=== PATIENT | female | born 1990 | race Caucasian/White ===

== ENCOUNTER 2021-01-30 11:32 | Day surgery (SDC) | payer OTHER ==
[2021-01-28 15:58] LABS: PLATELET COUNT 269 x10^3mcL (179-408)
[2021-01-28 16:07] LABS: BASOPHIL % 2.3 % (0.2-1.3)
[2021-01-28 16:14] LABS: ALKALINE PHOSPHATASE 56 U/L (46-116); ALT/SGPT 67 U/L (14-59); AST/SGOT 26 U/L (15-37); BILIRUBIN TOTAL 0.2 mg/dL (0.20-1.00); CALCIUM 8.9 mg/dL (8.5-10.1); CARBON DIOXIDE 26.9 mmol/L (21-32); CHLORIDE SERUM 103 mmol/L (98-107); CREATININE SERUM 0.7 mg/dL (0.6-1.0); GFR1 > 60 mL/min; GLUCOSE SERUM 88 mg/dL (74-106); POTASSIUM SERUM 4.4 mmol/L (3.5-5.1); SODIUM SERUM 138 mmol/L (136-145); TOTAL PROTEIN, SERUM 7.1 g/dL (6.4-8.2)
[2021-01-28 16:17] LABS: ALBUMIN 3.3 g/dL (3.4-5.0)
[~2021-01-30] VITALS: Ht 165.1 cm; Wt 109.8 kg
[2021-01-30 11:57] VITALS: BP 146/70
[2021-01-30 18:12] VITALS: BP 147/84
== END 2021-01-30 18:05 | disposition home or self-care (01) ==
LOC: DS 11:32 → OR 13:30 → DS 18:05
PROVIDERS: ATTEND Surgery
DX: L05.91 Pilonidal cyst without abscess (principal); E66.9 Obesity, unspecified; Z68.38 Body mass index [BMI] 38.0-38.9, adult
CPT/HCPCS: J0690; J2175; J2250; J2405; J3010; J3490